=== PATIENT | female | born 1970 | race Caucasian/White ===

== ENCOUNTER 2017-03-17 11:51 | Inpatient (IN) | payer OTHER ==
[2017-03-17] MEDS ORDERED: NS 1000 ML 1,000 ML IV ONE (14:04)
[2017-03-17] MEDS: ZOSYN VIAL 4.5 GM 4.5 GM in NS 100 ML IV + SPIKE MINIBAG* 100 ML IV SCH ×3 (14:36→21:49)
[2017-03-17 14:52] VITALS: BMI 34.7
[2017-03-17] MEDS: LEVAQUIN PREMIX IV 500 MG 500 MG/100 ML BAG IV SCH (14:52)
[2017-03-17 14:53] LABS: BASOPHILS # (AUTO) 0.1 X10^3/uL (0.0-0.1); BASOPHILS % (AUTO) 0.8 % (0.2-1.0); EOSINOPHILS % (AUTO) 0.4 % (0.9-2.9); HEMATOCRIT 38.5 % (36.0-47.0); HEMOGLOBIN 12.9 g/dL (12.0-16.0); LYMPHOCYTES # (AUTO) 0.8 X10^3/uL (1.3-2.9); LYMPHOCYTES % (AUTO) 12.5 % (21.0-51.0); MEAN CORPUSCULAR HEMOGLOBIN 28.2 pg (27.0-34.0); MEAN CORPUSCULAR HGB CONC 33.5 g/dL (33.0-35.0); MEAN CORPUSCULAR VOLUME 84.2 fL (80.0-100.0); MEAN PLATELET VOLUME 8.4 fL (7.4-11.0); MONOCYTES # (AUTO) 0.9 x10^3/uL (0.3-0.8); NEUTROPHILS # (AUTO) 4.4 x10^3/uL (2.2-4.8); NEUTROPHILS % (AUTO) 72.3 % (42.0-75.0); PLATELET COUNT 216 X10^3/uL (150.0-450.0); RED BLOOD COUNT 4.57 X10^6/uL (3.5-5.4); RED CELL DISTRIBUTION WIDTH 14.5 % (11.6-16.5); WHITE BLOOD COUNT 6.1 X10^3/uL (3.6-10.0)
[2017-03-17 15:01] LABS: ALANINE AMINOTRANSFERASE 86 Units/L (12-78); ALBUMIN 3.4 g/dL (3.4-5.0); ALKALINE PHOSPHATASE 96 Units/L (46-116); ASPARTATE AMINO TRANSFERASE 89 Units/L (15-37); BLOOD UREA NITROGEN 12 mg/dL (7-18); CALCIUM 9.2 mg/dL (8.5-10.1); CARBON DIOXIDE 20.1 mmol/L (21-32); CHLORIDE 101 mmol/L (98-107); CREATININE 1.03 mg/dL (0.55-1.02); SODIUM 134 mmol/L (136-145); TOTAL PROTEIN 7.9 g/dL (6.4-8.2); eGFR BLACK RACES > 60 (>60); eGFR NON BLACK RACES > 60 (>60)
[2017-03-17] MEDS ORDERED: NORCO 5/325 MG TAB PO PRN (15:22)
[2017-03-17] MEDS ORDERED: NS 1000 ML 1,000 ML ONE (17:40)
[2017-03-17] MEDS: NS 1000 ML 1,000 ML IV SCH (17:55)
[2017-03-18 01:17] LABS: BILIRUBIN,URINE NEGATIVE (NEGATIVE); BLOOD/HEMOGLOBIN,URINE 2+ (NEGATIVE); GLUCOSE, URINE NEGATIVE (NEGATIVE); KETONES,URINE NEGATIVE (NEGATIVE); LEUKOCYTE ESTERASE ,URINE 3+ (NEGATIVE); NITRITES,URINE NEGATIVE (NEGATIVE); PROTEIN,URINE NEGATIVE (NEGATIVE); UROBILINOGEN,URINE 1+ (NORMAL)
[2017-03-18] MEDS: NS 1000 ML 1,000 ML IV SCH ×4 (01:26→19:54)
[2017-03-18 01:36] LABS: APPEARANCE,URINE SLIGHTLY HAZY (CLEAR); BACTERIA,URINE 1+ /HPF (NEGATIVE); COLOR,URINE YELLOW (YELLOW); SQUAMOUS EPITHELIAL CELL,UR FEW /HPF (NEGATIVE)
[2017-03-18 05:37] LABS: BASOPHILS # (AUTO) 0.1 X10^3/uL (0.0-0.1); EOSINOPHILS # (AUTO) 0.1 x10^3/uL (0.0-0.2); EOSINOPHILS % (AUTO) 1.5 % (0.9-2.9); HEMATOCRIT 33.6 % (36.0-47.0); HEMOGLOBIN 11.4 g/dL (12.0-16.0); LYMPHOCYTES # (AUTO) 0.9 X10^3/uL (1.3-2.9); MEAN CORPUSCULAR HEMOGLOBIN 28.3 pg (27.0-34.0); MEAN CORPUSCULAR HGB CONC 33.9 g/dL (33.0-35.0); MEAN CORPUSCULAR VOLUME 83.4 fL (80.0-100.0); MEAN PLATELET VOLUME 8.5 fL (7.4-11.0); MONOCYTES # (AUTO) 0.8 x10^3/uL (0.3-0.8); MONOCYTES % (AUTO) 14.9 % (0.0-13.0); NEUTROPHILS # (AUTO) 3.4 x10^3/uL (2.2-4.8); NEUTROPHILS % (AUTO) 65.6 % (42.0-75.0); PLATELET COUNT 183 X10^3/uL (150.0-450.0); RED BLOOD COUNT 4.03 X10^6/uL (3.5-5.4); RED CELL DISTRIBUTION WIDTH 14.6 % (11.6-16.5); WHITE BLOOD COUNT 5.2 X10^3/uL (3.6-10.0)
[2017-03-18] MEDS: ZOSYN VIAL 4.5 GM 4.5 GM in NS 100 ML IV + SPIKE MINIBAG* 100 ML IV SCH ×3 (05:59→21:52)
[2017-03-18 06:25] LABS: ALANINE AMINOTRANSFERASE 83 Units/L (12-78); ALBUMIN 2.9 g/dL (3.4-5.0); ALKALINE PHOSPHATASE 82 Units/L (46-116); ASPARTATE AMINO TRANSFERASE 77 Units/L (15-37); BLOOD UREA NITROGEN 6 mg/dL (7-18); CALCIUM 8.4 mg/dL (8.5-10.1); CARBON DIOXIDE 21.1 mmol/L (21-32); CHLORIDE 106 mmol/L (98-107); COR CA(FOR HYPOALB) 9.3 mg/dL (8.5-10.1); CREATININE 0.82 mg/dL (0.55-1.02); SODIUM 138 mmol/L (136-145); TOTAL PROTEIN 6.7 g/dL (6.4-8.2); eGFR BLACK RACES > 60 (>60); eGFR NON BLACK RACES > 60 (>60)
[2017-03-18] MEDS: LEVAQUIN PREMIX IV 500 MG 500 MG/100 ML BAG IV SCH (08:35)
[2017-03-18] MEDS ORDERED: KLONOPIN TAB 0.5 MG PO PRN (11:40)
[2017-03-18] MEDS ORDERED: HumuLIN R SUBCUT PRN (11:42)
[2017-03-18] MEDS ORDERED: FOLIC ACID TAB 1 MG PO SCH (12:00)
[2017-03-18] MEDS ORDERED: PROTONIX TAB 40 MG PO SCH (12:00)
[2017-03-18] MEDS ORDERED: ARIMIDEX PO SCH (12:00)
--- NOTE | 2017-03-18 20:37 | DR.UPDATE ---
H&P Update History and Physical Update: WAS SEEN IN THE OFFICE ON 03/17/17. A H&P WAS COMPLETED PRIOR TO ADMISSION. PATIENT HAS BEEN SEEN AND EXAMINED WITH NO CHANGES NOTED TO H&P. Changes noted: NO Yes with the following:
[2017-03-18] MEDS: SNACK - Diabetic Appropriate PO SCH (21:52)
[2017-03-18] MEDS: FOLIC ACID TAB 1 MG PO SCH (21:53)
[2017-03-18] MEDS: PROTONIX TAB 40 MG PO SCH (21:53)
[2017-03-18] MEDS: LIPITOR TAB 20 MG PO SCH (21:53)
[2017-03-18] MEDS: ARIMIDEX PO SCH (21:54)
[2017-03-19] MEDS: NS 1000 ML 1,000 ML IV SCH ×4 (01:15→21:53)
[2017-03-19] MEDS: ZOSYN VIAL 4.5 GM 4.5 GM in NS 100 ML IV + SPIKE MINIBAG* 100 ML IV SCH ×3 (05:40→21:54)
[2017-03-19 06:11] LABS: BASOPHILS % (AUTO) 0.7 % (0.2-1.0); EOSINOPHILS # (AUTO) 0.1 x10^3/uL (0.0-0.2); EOSINOPHILS % (AUTO) 1.8 % (0.9-2.9); HEMATOCRIT 33.2 % (36.0-47.0); HEMOGLOBIN 11.3 g/dL (12.0-16.0); LYMPHOCYTES # (AUTO) 1.3 X10^3/uL (1.3-2.9); LYMPHOCYTES % (AUTO) 21.7 % (21.0-51.0); MEAN CORPUSCULAR HEMOGLOBIN 28.4 pg (27.0-34.0); MEAN CORPUSCULAR HGB CONC 33.9 g/dL (33.0-35.0); MEAN CORPUSCULAR VOLUME 83.7 fL (80.0-100.0); MEAN PLATELET VOLUME 8.4 fL (7.4-11.0); NEUTROPHILS # (AUTO) 3.6 x10^3/uL (2.2-4.8); NEUTROPHILS % (AUTO) 59.8 % (42.0-75.0); PLATELET COUNT 207 X10^3/uL (150.0-450.0); RED BLOOD COUNT 3.96 X10^6/uL (3.5-5.4); RED CELL DISTRIBUTION WIDTH 14.2 % (11.6-16.5)
[2017-03-19 06:14] LABS: ALANINE AMINOTRANSFERASE 78 Units/L (12-78); ALKALINE PHOSPHATASE 98 Units/L (46-116); ASPARTATE AMINO TRANSFERASE 63 Units/L (15-37); BLOOD UREA NITROGEN 10 mg/dL (7-18); CALCIUM 8.9 mg/dL (8.5-10.1); CARBON DIOXIDE 23.3 mmol/L (21-32); CHLORIDE 108 mmol/L (98-107); COR CA(FOR HYPOALB) 9.7 mg/dL (8.5-10.1); CREATININE 0.77 mg/dL (0.55-1.02); SODIUM 142 mmol/L (136-145); eGFR BLACK RACES > 60 (>60); eGFR NON BLACK RACES > 60 (>60)
[2017-03-19 07:23] LABS: BAND NEUTROPHILS % 2 % (0-10); PLATELET MORPHOLOGY COMMENT NORMAL (NORMAL)
[2017-03-19] MEDS: LEVAQUIN PREMIX IV 500 MG 500 MG/100 ML BAG IV SCH (10:17)
[2017-03-19] MEDS ORDERED: NS 100 ML IV + SPIKE MINIBAG* 100 ML IV ONE (13:07)
[2017-03-19] MEDS: SNACK - Diabetic Appropriate PO SCH (21:54)
[2017-03-19] MEDS: ARIMIDEX PO SCH (21:54)
[2017-03-19] MEDS: PROTONIX TAB 40 MG PO SCH (21:55)
[2017-03-19] MEDS: FOLIC ACID TAB 1 MG PO SCH (21:55)
[2017-03-19] MEDS: LIPITOR TAB 20 MG PO SCH (21:55)
[2017-03-20 06:22] LABS: BASOPHILS % (AUTO) 0.5 % (0.2-1.0); EOSINOPHILS # (AUTO) 0.1 x10^3/uL (0.0-0.2); EOSINOPHILS % (AUTO) 2.3 % (0.9-2.9); HEMATOCRIT 32.9 % (36.0-47.0); LYMPHOCYTES # (AUTO) 1.1 X10^3/uL (1.3-2.9); LYMPHOCYTES % (AUTO) 18.4 % (21.0-51.0); MEAN CORPUSCULAR HGB CONC 33.6 g/dL (33.0-35.0); MEAN CORPUSCULAR VOLUME 83.3 fL (80.0-100.0); MEAN PLATELET VOLUME 7.9 fL (7.4-11.0); MONOCYTES # (AUTO) 0.8 x10^3/uL (0.3-0.8); MONOCYTES % (AUTO) 13.4 % (0.0-13.0); NEUTROPHILS % (AUTO) 65.4 % (42.0-75.0); PLATELET COUNT 233 X10^3/uL (150.0-450.0); RED BLOOD COUNT 3.95 X10^6/uL (3.5-5.4); RED CELL DISTRIBUTION WIDTH 14.1 % (11.6-16.5); WHITE BLOOD COUNT 6.1 X10^3/uL (3.6-10.0)
[2017-03-20 06:30] LABS: ALANINE AMINOTRANSFERASE 65 Units/L (12-78); ALBUMIN 2.9 g/dL (3.4-5.0); ALKALINE PHOSPHATASE 89 Units/L (46-116); ASPARTATE AMINO TRANSFERASE 41 Units/L (15-37); BLOOD UREA NITROGEN 9 mg/dL (7-18); CALCIUM 8.9 mg/dL (8.5-10.1); CHLORIDE 106 mmol/L (98-107); COR CA(FOR HYPOALB) 9.8 mg/dL (8.5-10.1); COR NA(FOR HYPERGLY) 141 mmol/L (136-145); CREATININE 0.69 mg/dL (0.55-1.02); SODIUM 141 mmol/L (136-145); TOTAL PROTEIN 6.9 g/dL (6.4-8.2); eGFR BLACK RACES > 60 (>60); eGFR NON BLACK RACES > 60 (>60)
[2017-03-20] MEDS: ZOSYN VIAL 4.5 GM 4.5 GM in NS 100 ML IV + SPIKE MINIBAG* 100 ML IV SCH ×2 (08:17→14:46)
[2017-03-20] MEDS: LEVAQUIN PREMIX IV 500 MG 500 MG/100 ML BAG IV SCH (08:17)
[2017-03-20] MEDS: NS 1000 ML 1,000 ML IV SCH (13:32)
[2017-03-20 15:31] VITALS: BP 117/65
--- NOTE | 2017-03-22 10:34 | PCM.PROG ---
Progress Note - Progress Note for Day of Date: 03/18/17 - Subjective Subjective: WAS ADMITTED FOR UROSEPSIS AND ABDOMINAL PAIN. TODAY, SHE IS ALERT AND ORIENTED, LYING IN BED ON MORNING ROUNDS. PATIENT'S IS AT BEDSIDE. SHE CONTINUES WITH COMPLAINTS OF SUPRAPUBIC PAIN AND FLANK PAIN. SHE ALSO REPORTS BURNING ON URINATION. ON EXAMINATION, LUNGS ARE NOTED CLEAR TO AUSCULTATION. ABDOMEN IS ROUND, SOFT, AND TENDER WITH NORMAL BOWEL SOUNDS NOTED IN ALL QUADRANTS. HER VITAL SIGNS THIS MORNING ARE 98.7-88-20-94%-98/58. A CBC AND CMP WERE OBTAINED THIS MORNING. ABNORMAL LAB VALUES INCLUDE THE FOLLOWING: HGB 11.4, HCT 33.6, BUN 6, CALCIUM 8.4, AST 77, ALT 83, ALBUMIN 2.9. A URINALYSIS WAS OBTAINED DURING THE NIGHT AND REPORTED URINE RBC 5-10, URINE WBC 5-10, LEUKOCTES 3+, URINE BACTERIA 3+, OCCULT BLOOD 2+. NITRITES AND PROTEIN NEGATIVE. WE WILL CONTINUE WITH CURRENT PLAN OF CARE TODAY AND ORDER A CT ABD/ PELVIS WITH CONTRAST FOR IN THE MORNING. WE PLAN TO FOLLOW UP WITH AM LABS AND CONTINUE TO MONITOR PATIENT. - Past Medical Family Social History Past Med/Fam/Surg Hx: No changes since H&P Allergies: Allergies No Known Drug Allergies Allergy (Verified 03/17/17 14:53) - Review of Systems ROS: No change since H&P - Vital Signs and I&O's Vital Signs: Temperature 97.9 F Pulse Rate [Left Brachial] 79 Respiratory Rate 18 Blood Pressure [Left Arm] 117/65 Blood Pressure 121/71 O2 Sat by Pulse Oximetry 97 Intake and Output: Intake & Output 03/19/17 03/20/17 03/21/17 03/22/17 11:59 11:59 11:59 11:59 Intake Total 2560 1291 Balance 2560 1291 - Physical Exam Oriented: Normal Eyes: Normal Ear: Normal Nose: Normal Throat: Normal Respiratory: Normal Cardiovascular: Normal : Dysuria Auscultation: Bowel Sounds: Normal Palpation: Normal Tenderness: Suprapubic Skin: Normal Musculoskeletal: Normal Psychiatric: Normal Mood Description: Calm Affect: Normal Speech Pattern: Clear, Appropriate - Laboratory and Diagnostics Result Diagrams: 03/20/17 05:46 03/20/17 05:46 Labs: 03/18/17 00:26 Urine,Clean Catch Urine Culture - Final 03/17/17 14:34 Blood Blood Culture - Preliminary 03/17/17 14:15 Blood Blood Culture - Preliminary Laboratory WBC 6.1 X10^3/uL (3.6-10.0) 03/20/17 05:46 RBC 3.95 X10^6/uL (3.5-5.4) 03/20/17 05:46 Hgb 11.0 g/dL (12.0-16.0) L 03/20/17 05:46 Hct 32.9 % (36.0-47.0) L 03/20/17 05:46 MCV 83.3 fL (80.0-100.0) 03/20/17 05:46 MCH 28.0 pg (27.0-34.0) 03/20/17 05:46 MCHC 33.6 g/dL (33.0-35.0) 03/20/17 05:46 RDW 14.1 % (11.6-16.5) 03/20/17 05:46 Plt Count 233 X10^3/uL (150.0-450.0) 03/20/17 05:46 Plt Count Comment Adequate (ADEQUATE) 03/19/17 04:15 MPV 7.9 fL (7.4-11.0) 03/20/17 05:46 Neut % 65.4 % (42.0-75.0) 03/20/17 05:46 Lymph % 18.4 % (21.0-51.0) L 03/20/17 05:46 [place] % 13.4 % (0.0-13.0) H 03/20/17 05:46 Eos % 2.3 % (0.9-2.9) 03/20/17 05:46 Baso % 0.5 % (0.2-1.0) 03/20/17 05:46 Neut # 4.0 x10^3/uL (2.2-4.8) 03/20/17 05:46 Lymph # 1.1 X10^3/uL (1.3-2.9) L 03/20/17 05:46 [place] # 0.8 x10^3/uL (0.3-0.8) 03/20/17 05:46 Eos # 0.1 x10^3/uL (0.0-0.2) 03/20/17 05:46 Baso # 0.0 X10^3/uL (0.0-0.1) 03/20/17 05:46 Absolute Nucleated RBC 0.1 /100WBC 03/20/17 05:46 Total Counted 100 03/19/17 04:15 Neutrophils % (Manual) 60 % (39-76) 03/19/17 04:15 Band Neutrophils % 2 % (0-10) 03/19/17 04:15 Lymphocytes % (Manual) 20 % (13-43) 03/19/17 04:15 Monocytes % (Manual) 15 % (4-9) H 03/19/17 04:15 Eosinophils % (Manual) 2 % (0-6) 03/19/17 04:15 Atypical Lymphocytes 1 03/19/17 04:15 Plt Morphology Comment Normal (NORMAL) 03/19/17 04:15 RBC Morphology Normal (NORMAL) 03/19/17 04:15 Sodium 141 mmol/L (136-145) 03/20/17 05:46 Corrected Sodium 141 mmol/L (136-145) 03/20/17 05:46 Potassium 3.9 mmol/L (3.5-5.1) 03/20/17 05:46 Chloride 106 mmol/L (98-107) 03/20/17 05:46 Carbon Dioxide 23.0 mmol/L (21-32) 03/20/17 05:46 BUN 9 mg/dL (7-18) 03/20/17 05:46 Creatinine 0.69 mg/dL (0.55-1.02) 03/20/17 05:46 Est GFR (MDRD) Af Amer > 60 (>60) 03/20/17 05:46 Est GFR (MDRD) Non-Af > 60 (>60) 03/20/17 05:46 Glucose 112 mg/dL (65-99) H 03/20/17 05:46 POC Glucose (mg/dL) 77 mg/dL (65-99) 03/18/17 16:58 Lactic Acid 1.0 mmol/L (0.4-2.0) 03/17/17 14:15 Calcium 8.9 mg/dL (8.5-10.1) 03/20/17 05:46 Corrected Calcium 9.8 mg/dL (8.5-10.1) 03/20/17 05:46 Total Bilirubin 0.30 mg/dL (0.2-1.0) 03/20/17 05:46 AST 41 Units/L (15-37) H 03/20/17 05:46 ALT 65 Units/L (12-78) 03/20/17 05:46 Alkaline Phosphatase 89 Units/L (46-116) 03/20/17 05:46 Total Protein 6.9 g/dL (6.4-8.2) 03/20/17 05:46 Albumin 2.9 g/dL (3.4-5.0) L 03/20/17 05:46 Globulin 4.0 g/dL (2.5-4.5) 03/20/17 05:46 Albumin/Globulin Ratio 0.7 Ratio (1.1-2.1) L 03/20/17 05:46 Specimen Type Clean catch urine 03/18/17 00:26 Urine Color Yellow (YELLOW) 03/18/17 00:26 Urine Appearance Slightly hazy (CLEAR) 03/18/17 00:26 Urine pH 6.0 (5.0 - 8.0) 03/18/17 00:26 Ur Specific [place] 1.010 (1.000-1.030) 03/18/17 00:26 Urine Protein Negative (NEGATIVE) 03/18/17 00:26 Urine Glucose (UA) Negative (NEGATIVE) 03/18/17 00:26 Urine Ketones Negative (NEGATIVE) 03/18/17 00:26 Urine Occult Blood 2+ (NEGATIVE) 03/18/17 00:26 Urine Nitrite Negative (NEGATIVE) 03/18/17 00:26 Urine Bilirubin Negative (NEGATIVE) 03/18/17 00:26 Urine Urobilinogen 1+ (NORMAL) 03/18/17 00:26 Ur Leukocyte Esterase 3+ (NEGATIVE) 03/18/17 00:26 Urine RBC 5-10 /HPF (NEGATIVE) 03/18/17 00:26 Urine WBC 5-10 /HPF (NEGATIVE) 03/18/17 00:26 Ur Squamous Epith Cells Few /HPF (NEGATIVE) 03/18/17 00:26 Urine Bacteria 1+ /HPF (NEGATIVE) 03/18/17 00:26 Ur Culture Indicated? 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
== END 2017-03-20 16:10 | disposition home or self-care (01) | DRG 690 ==
LOC: MED/SURG 11:51
PROVIDERS: ADMIT Internal Medicine; ATTEND Internal Medicine
DX: N30.01 Acute cystitis with hematuria (principal); R10.84 Generalized abdominal pain; R11.0 Nausea; R50.9 Fever, unspecified; E11.65 Type 2 diabetes mellitus with hyperglycemia; Q61.3 Polycystic kidney, unspecified; Z79.4 Long term (current) use of insulin
CPT/HCPCS: 36415; 74176; 74177; 80053; 81001; 83605; 85025; 87040; 87086; A4216; A4222; S0170; J1956; J2543